=== PATIENT | female | born 1980 | race Caucasian/White ===

== ENCOUNTER 2017-10-06 08:42 | Outpatient (CLI) | payer MEDICAID ==
[2017-10-06 09:29] LABS: ADD UMIC YES; UR ASCORBIC ACID NEGATIVE (NEGATIVE); UR BACTERIA FEW /HPF (NONE SEEN); UR BILIRUBIN (Dip) NEGATIVE (NEGATIVE); UR BLOOD (Dip) NEGATIVE (NEGATIVE); UR CLARITY CLOUDY (CLEAR); UR COLOR YELLOW (YELLOW); UR GLUCOSE (Dip) NEGATIVE (NEGATIVE); UR KETONES (Dip) NEGATIVE (NEGATIVE); UR LEUKOCYTE ESTERASE (Dip) NEGATIVE Leu/ul (NEGATIVE); UR NITRITE (Dip) NEGATIVE (NEGATIVE); UR RBC 1 /HPF (0-5); UR SPECIFIC GRAVITY (Dip) 1.016 (1.003-1.030); UR SQUAMOUS EPITHELIAL CELL MANY /HPF (FEW); UR TOTAL PROTEIN (Dip) NEGATIVE (NEGATIVE); UR UROBILINOGEN (Dip) NEGATIVE (NEGATIVE); UR WBC 4 /HPF (0-5)
[2017-10-06 09:44] LABS: AMPHETAMINE/METHAMPHETAMINE Negative (NEGATIVE); BARBITURATES Negative (NEGATIVE); BENZODIAZEPINES Negative (NEGATIVE); CANNABINOIDS Negative (NEGATIVE); COCAINE Negative (NEGATIVE); OPIATES Negative (NEGATIVE)
[2017-10-06] MEDS: LACTATED RINGER'S 1,000 ML IV (10:00)
[2017-10-06] MEDS: TERBUTALINE 1 MG/ML INJ SC (11:12)
== END 2017-10-06 12:20 | disposition home or self-care (01) ==
LOC: OBT 08:42 → L-D 08:44 → OBT 12:20
DX: O09.522 Supervision of elderly multigravida, second trimester (principal); O34.219 Maternal care for unspecified type scar from previous cesarean delivery; Z3A.27 27 weeks gestation of pregnancy
CPT/HCPCS: 76815; 76817; 80307; 81001; 82731; 96360; 96361; 96372

== ENCOUNTER 2017-10-07 08:24 | Inpatient (IN) | payer MEDICAID ==
[2017-10-07] MEDS: LACTATED RINGER'S 1,000 ML IV ×3 (09:17→22:33)
[2017-10-07] MEDS: BETAMET NA PHOS/AC(6 MG/ML) 5ML INJ IM (09:17)
[2017-10-07] MEDS: TERBUTALINE 1 MG/ML INJ SC (09:18)
[2017-10-07] MEDS ORDERED: CEFAZOLIN 2 GM/50 ML (PMX) 50 ML IVPB (10:40)
[2017-10-07] MEDS: CEFAZOLIN 2 GM/50 ML (PMX) 50 ML IVPB (10:44)
[2017-10-07] MEDS ORDERED: ACETAMINOPHEN 325 MG TAB PO (12:30)
[2017-10-07] MEDS: MAGNESIUM SULFATE 4 GM/100 ML 100 ML IV (12:34)
[2017-10-07] MEDS ORDERED: AL HYDROX/MG HYDROX/SIMETH 30 ML CUP PO (13:00)
[2017-10-07] MEDS: MAGNESIUM SULFATE 20 GM/500 ML 500 ML IV ×2 (13:19→22:37)
[2017-10-07 18:51] LABS: MAGNESIUM 4.4 mg/dl (1.7-2.5)
[2017-10-08] MEDS: MAGNESIUM SULFATE 20 GM/500 ML 500 ML IV (07:37)
[2017-10-08 07:48] LABS: MAGNESIUM 5.4 mg/dl (1.7-2.5)
[2017-10-08] MEDS: PRENATAL VITAMIN PO (08:58)
[2017-10-08] MEDS: BETAMET NA PHOS/AC(6 MG/ML) 5ML INJ IM (08:58)
[2017-10-08] MEDS: LACTATED RINGER'S 1,000 ML IV (11:35)
[2017-10-09] MEDS: PRENATAL VITAMIN PO (09:02)
[2017-10-09] MEDS: NIFEdipine 10 MG CAP PO ×3 (11:48→23:48)
[2017-10-10] MEDS: NIFEdipine 10 MG CAP PO ×2 (05:44→11:46)
[2017-10-10] MEDS: PRENATAL VITAMIN PO (09:29)
== END 2017-10-10 15:15 | disposition home or self-care (01) | DRG 778 ==
LOC: OBT 08:24 → L-D 08:24 → OBT 12:00 → L-D 12:00 → PP1 14:01
PROVIDERS: Obstetrics & Gynecology
DX: O60.02 Preterm labor without delivery, second trimester (principal); O26.872 Cervical shortening, second trimester; O23.42 Unspecified infection of urinary tract in pregnancy, second trimester; O09.522 Supervision of elderly multigravida, second trimester; Z3A.26 26 weeks gestation of pregnancy
CPT/HCPCS: 36415; 76817; 76818; 83735; 87086; 93970; 96360; 96361; 96368; 96372

== ENCOUNTER 2017-12-19 10:39 | Inpatient (IN) | payer MEDICAID ==
[~2017-12-19 10:39] MED LIST: CEFAZOLIN 1 GM INJ
[2017-12-19] MEDS ORDERED: LACTATED RINGER'S 500 ML IV (11:30)
[2017-12-19] MEDS ORDERED: METHYLERGONOVINE 0.2 MG INJ IM ×2 (12:00→15:00)
[2017-12-19] MEDS ORDERED: CARBOPROST 250 MCG INJ IM ×2 (12:00→15:00)
[2017-12-19] MEDS ORDERED: CEFAZOLIN 2 GM/50 ML (PMX) 50 ML IV (12:00)
[2017-12-19] MEDS ORDERED: MISOPROSTOL 200 MCG TAB PR ×2 (12:00→15:00)
[2017-12-19] MEDS: LACTATED RINGER'S 1,000 ML IV ×2 (12:35→13:21)
[2017-12-19 12:37] LABS: ADD MAN DIFF? NO
[2017-12-19 12:45] LABS: WHITE BLOOD COUNT 7.1 10^3/ul (4.8-10.8)
[2017-12-19 12:45] LABS: BASOPHILS % 0.3 % (0.0-2.0); EOSINOPHILS # 0.1 10^3/ul (0.0-0.5); EOSINOPHILS % 1.3 % (0.0-7.0); HEMATOCRIT 32.1 % (37.0-47.0); HEMOGLOBIN 10.7 g/dl (12.0-16.0); LYMPHOCYTES # 1.3 10^3/ul (0.8-2.9); LYMPHOCYTES % 18.1 % (15.0-51.0); MEAN CORPUSCULAR HEMOGLOBIN 28.5 pg (29.0-33.0); MEAN CORPUSCULAR HGB CONC 33.3 g/dl (32.0-37.0); MEAN CORPUSCULAR VOLUME 85.6 fl (82.0-101.0); MONOCYTE # 0.6 10^3/ul (0.3-0.9); MONOCYTES % 7.9 % (0.0-11.0); NEUTROPHIL # 5.1 10^3/ul (1.6-7.5); NEUTROPHILS % 72.1 % (39.0-77.0); PLATELET COUNT 219 10^3/UL (140-415); RED BLOOD COUNT 3.75 10^6/ul (4.20-5.40); RED CELL DISTRIBUTION WIDTH 14.5 % (11.5-14.5)
[2017-12-19 13:11] LABS: INR 0.88; PT RATIO 0.9
[2017-12-19 13:12] LABS: PARTIAL THROMBOPLASTIN TIME 27.2 Sec (25.0-35.0)
[2017-12-19] MEDS ORDERED: BUPIVACAINE 0.75%/DEXT (SPINAL) 2 ML INJ ×2 (13:45→13:51)
[2017-12-19] MEDS ORDERED: morphine SULFATE/PF (10 MG/10 ML) INJ (13:46)
[2017-12-19] MEDS ORDERED: FENTAnyl 50 MCG/ML VIAL (13:46)
[2017-12-19] MEDS ORDERED: PHENYLephrine (100 MCG/ML) 5ML SYG (13:59)
[2017-12-19] MEDS ORDERED: ONDANSETRON 4 MG INJ (14:00)
[2017-12-19] MEDS ORDERED: DEXAMETHASONE 4 MG/ML 1 ML INJ (14:00)
[2017-12-19 14:10] LABS: HEPATITIS B SURFACE ANTIGEN NEGATIVE (NEGATIVE)
[2017-12-19] MEDS ORDERED: HYDROmorphONE 0.5 MG/0.5 ML SYG IV ×2 (15:00)
[2017-12-19] MEDS ORDERED: ONDANSETRON 4 MG INJ IV (15:00)
[2017-12-19] MEDS ORDERED: OXYTOCIN 30 UNITS/LR 500 ML IV (15:00)
[2017-12-19] MEDS ORDERED: OXYCODONE/ASPIRIN (4.88/325) TAB PO (15:00)
[2017-12-19] MEDS ORDERED: NALOXONE (0.4 MG/ML) INJ IV (15:00)
[2017-12-19] MEDS ORDERED: LANOLIN 7 GM TUBE TOP (15:00)
[2017-12-19] MEDS ORDERED: KETOROLAC 30 MG INJ IV (15:00)
[2017-12-19] MEDS ORDERED: BENZOCAINE 20% 56 ML SPRAY TOP (15:00)
[2017-12-19] MEDS ORDERED: SENNA/DOCUSATE NA (8.6MG/50MG) TAB PO (15:00)
[2017-12-19] MEDS ORDERED: ONDANSETRON 4 MG TAB PO (15:00)
[2017-12-19] MEDS ORDERED: DIPHENHYDRAMINE 50 MG INJ IV (15:00)
[2017-12-19] MEDS ORDERED: DIBUCAINE 1% 30 GM OINT PR (15:00)
[2017-12-19] MEDS ORDERED: ZOLPIDEM 5 MG TAB PO (15:00)
[2017-12-19] MEDS ORDERED: NACL 0.9% 3 ML SYG IV (15:00)
[2017-12-19] MEDS ORDERED: WITCH HAZEL/GLYCERIN PAD PR (15:00)
[2017-12-19] MEDS: OXYTOCIN 30 UNITS/LR 500 ML IV ×2 (15:10→20:43)
[2017-12-19] MEDS: ONDANSETRON 4 MG INJ IV (18:18)
[2017-12-19] MEDS: SENNA/DOCUSATE NA (8.6MG/50MG) TAB PO (20:43)
[2017-12-19 22:07] LABS: RAPID PLASMA REAGIN NONREACTIVE (NR)
[2017-12-20] MEDS: LACTATED RINGER'S 1,000 ML IV ×3 (07:06→19:36)
[2017-12-20] MEDS: SENNA/DOCUSATE NA (8.6MG/50MG) TAB PO ×2 (09:11→22:05)
[2017-12-20 09:48] LABS: ADD MAN DIFF? NO
[2017-12-20 09:50] LABS: WHITE BLOOD COUNT 9.6 10^3/ul (4.8-10.8)
[2017-12-20 09:50] LABS: BASOPHILS % 0.1 % (0.0-2.0); EOSINOPHILS % 0.4 % (0.0-7.0); HEMATOCRIT 25.7 % (37.0-47.0); HEMOGLOBIN 8.7 g/dl (12.0-16.0); LYMPHOCYTES # 2.2 10^3/ul (0.8-2.9); LYMPHOCYTES % 22.6 % (15.0-51.0); MEAN CORPUSCULAR HEMOGLOBIN 28.8 pg (29.0-33.0); MEAN CORPUSCULAR HGB CONC 33.9 g/dl (32.0-37.0); MEAN CORPUSCULAR VOLUME 85.1 fl (82.0-101.0); MEAN PLATELET VOLUME 10.6 fl (7.4-10.4); MONOCYTE # 0.7 10^3/ul (0.3-0.9); MONOCYTES % 7.7 % (0.0-11.0); NEUTROPHIL # 6.6 10^3/ul (1.6-7.5); NEUTROPHILS % 68.9 % (39.0-77.0); PLATELET COUNT 190 10^3/UL (140-415); RED BLOOD COUNT 3.02 10^6/ul (4.20-5.40); RED CELL DISTRIBUTION WIDTH 14.1 % (11.5-14.5)
[2017-12-20] MEDS: OXYCODONE/ASPIRIN (4.88/325) TAB PO (15:01)
[2017-12-20] MEDS: IBUPROFEN 600 MG TAB PO ×2 (18:38→23:48)
[2017-12-20] MEDS: FERROUS SULFATE (EC) 325 MG TAB PO (22:05)
[2017-12-21] MEDS: LACTATED RINGER'S 1,000 ML IV ×3 (03:36→19:36)
[2017-12-21] MEDS: IBUPROFEN 600 MG TAB PO ×3 (06:32→17:23)
[2017-12-21] MEDS: FERROUS SULFATE (EC) 325 MG TAB PO ×2 (08:44→21:16)
[2017-12-21] MEDS: SENNA/DOCUSATE NA (8.6MG/50MG) TAB PO ×2 (08:44→21:16)
[2017-12-21] MEDS: OXYCODONE/ASPIRIN (4.88/325) TAB PO (20:15)
[2017-12-22] MEDS: IBUPROFEN 600 MG TAB PO ×4 (00:05→17:38)
[2017-12-22] MEDS: LACTATED RINGER'S 1,000 ML IV ×2 (03:36→08:56)
[2017-12-22] MEDS: SENNA/DOCUSATE NA (8.6MG/50MG) TAB PO (09:01)
[2017-12-22] MEDS: FERROUS SULFATE (EC) 325 MG TAB PO (09:01)
== END 2017-12-22 19:15 | disposition home or self-care (01) | DRG 766 ==
LOC: OBT 10:39 → L-D 10:40 → OBT 11:33 → L-D 11:31 → PP1 17:25
PROVIDERS: Obstetrics & Gynecology
PROC: 10D00Z1 Extraction of Products of Conception, Low, Open Approach (ICD-10-PCS; principal; 2017-12-19 14:00)
PROC: 4A1HXCZ Monitoring of Products of Conception, Cardiac Rate, External Approach (ICD-10-PCS; 2017-12-19 14:00)
DX: O34.211 Maternal care for low transverse scar from previous cesarean delivery (principal); Z3A.37 37 weeks gestation of pregnancy; Z37.0 Single live birth
CPT/HCPCS: 36415; 85025; 85610; 85730; 86592; 86850; 86900; 86901; 87340; 94760; 99464